=== PATIENT | female | born 1945 | race Caucasian/White ===

== ENCOUNTER → 2017-01-19 | Day surgery (SDC) | payer OTHER, MEDICARE ==
[~2017-01-19] VITALS: Ht 177.8 cm; Wt 70.3 kg
[~2017-01-19] MED LIST: AMLODIPINE BESY10 M1 PO; ATORVASTATIN CA20 M1 PO; CARBAMAZEPINE200 M6 PO; LABETALOL HCL200 M1 PO
--- NOTE | 2017-01-19 09:20 | MAMMOGRAPHY REPORT ---
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 COMPARISON: Stereotactic biopsy and post procedure mammogram dated 09/27/2016. Mammogram dated 08/16/2016 and 12/13/2015. TECHNIQUE NEEDLE LOC: Proper informed consent is obtained from the patient after discussion of the procedure, potential risks and complications, and alternatives including declining the procedure today. Patient was given an opportunity for questions. The patient appeared to understand. The patient consented to the procedure and signed the consent form. GUIDANCE: Digital mammography. APPROACH: Superior TARGET: Biopsy clip in the upper outer quadrant of the right breast. Calcification grouping in the upper outer quadrant of the right breast. ANESTHESIA: 10 mL Xylocaine 2 % at each needle localization site. LOCALIZATION MARKER: Planday 5 cm needle localization system at each localization site. The skin was prepped and local anesthesia administered. The needles were positioned and position assessed with mammography. The wires were hooked into position. The patient tolerated the procedure well and had no immediate complication. Diagram was marked for the surgeon. DCIS as marked by biopsy clip: The target is located around the proximal thick segment of the wire, 2.1 cm deep to the skin with 11 cm of the wire remaining external to the skin. Indeterminate calcification grouping: The target is located just proximal to the thick thin junction of the wire, 2.9 cm deep to the skin with 11.5 cm of the wire remaining external to the skin. IMPRESSION: Status post right breast needle localization with wire hooked into position at 2 sites. DCIS as marked by biopsy clip is located around the proximal thick segment of the wire, 2.1 cm deep to the skin with 11 cm of the wire remaining external to the skin. Indeterminate calcification grouping is located just proximal to the thick thin junction of the wire, 2.9 cm deep to the skin with 11.5 cm of the wire remaining external to the skin.
--- NOTE | 2017-01-19 14:03 | Operative Report ---
Operative/Inv Procedure Report Surgery Date: 01/19/17 Name of Procedure: Right partial mastectomy Pre-Operative Diagnosis: Right breast DCIS, stage 0 breast cancer Post-Operative Diagnosis: Same Estimated Blood Loss: less than 50ml Surgeon/Title Searcher: CLAUS VARGAS,RAHAT Drake Anesthesia: local monitored anesthesi Specimens: Right lumpectomy, cranial margin, caudal margin, lateral margin, medial margin, deep margin Operative/Procedure Note Note: Patient brought to the operating room after preoperative wire localization was performed and those films reviewed. 2 g of Ancef and the right breast was prepped and draped in a sterile fashion using ChloraPrep. Incision was planned. Local anesthesia 1% lidocaine was half percent Marcaine was given curvilinear incision was made in the periareolar region. The wire was brought into the incision area of concern was grasped using an Allis clamp. Breast tissue was dissected to encompass both wires. Specimen was removed and marked for orientation as margin map. Intraoperative x-ray confirmed the presence of the clip on the calcifications in the specimen. Additional margins were taken in the cranial, caudal, medial, lateral, deep positions. As the dissection started right at the dermis. Wound was irrigated with sterile saline and hemostasis was adequate. Clips were used to connor the margins a lumpectomy. Deep tissue was proximal made using interrupted Vicryl sutures. The skin was closed using a running 4-0 subcuticular stitch. Her should she sterile dressings were applied and the patient was transferred to the recovery room in satisfactory condition having tolerated the procedure well.
--- NOTE | 2017-01-19 14:16 | MAMMOGRAPHY REPORT ---
EXAMINATION: MM NEEDLE LOCALIZATION SPECIMEN BREAST, RIGHT CLINICAL INFORMATION: Excision of right breast DCIS and indeterminate calcifications in upper outer quadrant COMPARISON: Preoperative needle localization films. TECHNIQUE SPECIMEN RADIOGRAPH: Single radiograph of the excised breast tissue is performed. FINDINGS SPECIMEN RADIOGRAPH: The specimen shows the needle and hookwire are delivered intact. The biopsy clip marker and index calcifications are identified in the specimen. Results were called to Dr. Butler in the operating room 01/19/2017, 10:59 AM. IMPRESSION: Postoperative specimen radiograph shows excision of the targeted clip and the localization wire and excision of the targeted calcifications.
== END ==
LOC: STS 01:35 → CBW.IIU 08:00 → CBW.MAMMO 08:30
DX: D05.11 Intraductal carcinoma in situ of right breast (principal); I10 Essential (primary) hypertension; E78.5 Hyperlipidemia, unspecified; N28.9 Disorder of kidney and ureter, unspecified; E87.5 Hyperkalemia; F17.200 Nicotine dependence, unspecified, uncomplicated
CPT/HCPCS: 88305; 88307; J0690; J2001; J2250